=== PATIENT | female | born 1950 | race Caucasian/White ===

== ENCOUNTER 2017-05-06 23:14 | Emergency (ER) | payer MEDICARE, OTHER ==
[~2017-05-06] VITALS: Ht 154.9 cm; Wt 48.5 kg
[~2017-05-06 23:14] MED LIST: ADVAIR HFA 45MC1 AER INH; ADVAIR HFA115 MCG/21; BIOTIN10000 MC1 PO; CLONAZEPAM 0.50.5 M1 PO; CO Q-10100 MG PO; COMPAZINE10 MG PO; CYMBALTA60 MG PO; DEXAMETHASONE 44 M1 PO; DURAGESIC1 EAC1 TOP; ENOXAPARIN60 MG/0.1 SUBQ; ENOXAPARIN80 MG/0.1; FLOMAX PO; FLUCONAZOLE 10100 MG PO; GABAPENTIN 100100 MG PO; HYDROCODON-ACE1 EAC5 PO; HYDROCODONE-AP1 EAC6 PO; LASIX 20 MG TAB20 MG PO; LASIX 40 MG TAB40 M2 PO; LEVAQUIN 500 M500 M2; LEVAQUIN 500 M500 M2 PO; LEVOCETIRIZINE D5 MG PO; LISINOPRIL10 MG PO; LOPRESSOR25 PO; MIRALAX17 G1 PO; MOBIC15 MG; MOBIC7.5 MG PO; MYRBETRIQ25 MG PO; NEURONTIN 300M300 M2; NORCO 10-325 T1 EACH PO; PERCOCET 5-3251 EACH PO; PHENERGAN 25 MG25 M1 PO; POTASSIUM20 PO; PREDNISONE 20 M20 MG PO; PROBIOTIC1 EAC1 PO; PROCTOSOL-HC28.35 GM RC; ROBAXIN 750 MG750 M1 PO; SERTRALINE HCL100 MG PO; SERTRALINE HCL50 MG PO; TIROSINT75 MCG PO; TRIAMCINOLONE ACETON NASAL; VICODIN; VICODIN 5-3001 EACH PO; VITAMIN B-1100 M1; VITAMIN D3400 UNIT PO; VITAMIN IM; ZOFRAN ODT8 MG PO; ZOLOFT50 MG PO
[2017-05-06 23:19] VITALS: BP 151/110
[2017-05-06] MEDS ORDERED: ENOXAPARIN60 MG/0.1 (23:22)
[2018-01-11] MEDS ORDERED: FENTANYL PATCH75 MCG TOP (13:22)
[2018-01-11] MEDS ORDERED: BIOTIN1000 MCG PO (13:23)
[2018-01-11] MEDS ORDERED: 24HR ALLERGY REL5 MG PO (13:23)
[2018-01-11] MEDS ORDERED: VITAMIN E400 UNIT PO (13:24)
[2018-01-11] MEDS ORDERED: MULTIPLE VITAM1 EAC2 PO (13:24)
[2018-01-11] MEDS ORDERED: OMEGA-31000 M1 PO (13:25)
[2018-01-11] MEDS ORDERED: PROAIR HFA8.5 GM INH (13:28)
[2018-01-11] MEDS ORDERED: [UNRECOGNIZED DRUG - OTHER] PO (13:28)
[2018-01-11] MEDS ORDERED: UNICOMPLEX M TA1 TA1 PO (13:29)
[2018-01-11] MEDS ORDERED: PROBIOTIC1 EAC1 PO (13:29)
[2018-01-11] MEDS ORDERED: CO Q-10100 MG PO (13:29)
[2018-01-11] MEDS ORDERED: MIRALAX17 GM PO (13:30)
[2018-01-11] MEDS ORDERED: OXYGEN MISCELL (13:31)
== END 2017-05-07 | disposition home or self-care (01) ==
LOC: M.ERS 23:14
DX: L59.8 Other specified disorders of the skin and subcutaneous tissue related to radiation (principal); E03.9 Hypothyroidism, unspecified; F41.9 Anxiety disorder, unspecified; F32.9 Major depressive disorder, single episode, unspecified; I10 Essential (primary) hypertension; Z88.1 Allergy status to other antibiotic agents; Z90.710 Acquired absence of both cervix and uterus; Z98.890 Other specified postprocedural states; Z88.8 Allergy status to other drugs, medicaments and biological substances

== ENCOUNTER → 2017-11-14 | Outpatient (CLI) | payer MEDICARE, OTHER ==
[~2017-11-14] MED LIST changes: +24HR ALLERGY REL5 MG PO; +BIOTIN1000 MCG PO; +ENOXAPARIN60 MG/0.1; +FENTANYL PATCH75 MCG TOP; +KEFLEX500 M1 PO; +MIRALAX17 GM PO; +MULTIPLE VITAM1 EAC2 PO; +OMEGA-31000 M1 PO; +OXYGEN MISCELL; +PROAIR HFA8.5 GM INH; +UNICOMPLEX M TA1 TA1 PO; +VITAMIN E400 UNIT PO; +[UNRECOGNIZED DRUG - OTHER] PO; +[UNRECOGNIZED DRUG - OTHER] PO
== END ==
LOC: M.RAD 10-24 08:49
DX: Z12.31 Encounter for screening mammogram for malignant neoplasm of breast (principal); M85.89 Other specified disorders of bone density and structure, multiple sites; I10 Essential (primary) hypertension; M48.061 Spinal stenosis, lumbar region without neurogenic claudication; K52.0 Gastroenteritis and colitis due to radiation; D51.1 Vitamin B12 deficiency anemia due to selective vitamin B12 malabsorption with proteinuria; D64.9 Anemia, unspecified; F33.1 Major depressive disorder, recurrent, moderate; Z78.0 Asymptomatic menopausal state

== ENCOUNTER 2018-01-15 14:52 | Emergency (ER) | payer MEDICARE, OTHER ==
[~2018-01-15] VITALS: Ht 154.9 cm; Wt 48.5 kg
[~2018-01-15 14:52] MED LIST changes: -KEFLEX500 M1 PO; -[UNRECOGNIZED DRUG - OTHER] PO
[2018-01-15] MEDS ORDERED: [UNRECOGNIZED DRUG - OTHER] PO (15:22)
[2018-01-15] MEDS ORDERED: KEFLEX500 M1 PO (16:58)
[2018-01-15 17:18] VITALS: BP 150/92
== END 2018-01-15 17:19 | disposition home or self-care (01) ==
LOC: M.ERS 14:52
DX: M79.671 Pain in right foot (principal); M79.674 Pain in right toe(s); E03.9 Hypothyroidism, unspecified; F41.9 Anxiety disorder, unspecified; F32.9 Major depressive disorder, single episode, unspecified; I10 Essential (primary) hypertension; Z88.1 Allergy status to other antibiotic agents; Z88.8 Allergy status to other drugs, medicaments and biological substances; Z90.710 Acquired absence of both cervix and uterus; Z90.49 Acquired absence of other specified parts of digestive tract

== ENCOUNTER → 2018-01-15 | Day surgery (SDC) | payer MEDICARE, OTHER ==
[2018-01-15 11:51] LABS: HEMATOCRIT 44.8 % (37.0-47.0); MCH 30.4 pg (26.0-34.0); MCHC 33.5 g/dL (28.0-37.0); MCV 90.8 fL (80.0-100.0); MPV 9.2 fl. (7.2-11.1); RBC 4.93 mil/uL (4.20-5.00); RDW-CV 13.3 % (10.5-14.5); WBC 8.4 thou/uL (4.0-11.0)
[2018-01-15 12:02] LABS: CALCIUM 8.9 mg/dL (8.5-10.1); CREATININE 0.8 mg/dL (0.6-1.3); POTASSIUM 3.6 mmol/L (3.5-5.1)
[2018-01-15 12:06] LABS: ALBUMIN 3.7 g/dL (3.4-5.0); TOTAL BILIRUBIN 0.5 mg/dL (<0.1-1.0); TOTAL PROTEIN 6.9 g/dL (6.4-8.2)
--- NOTE | 2018-01-15 13:12 | EKG ---
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[employer]: [facility] : 1950 Requested By: Robyn Thomas Order Number: [id number] Reading MD: Juan Greenberg Measurements Intervals [place] Rate: 77 P: 66 MO: 134 QRS: 9 QRSD: 93 T: 56 QT: 387 QTc: 438 Interpretive Statements Sinus rhythm Compared to ECG 02/07/2017 12:12:09 T-wave abnormality no longer present Electronically Signed On 01-15-2018 13:12:34 CDT by Juan Greenberg [email or web address] <ELECTRONICALLY SIGNED> By: Juan Greenberg MD, [facility] 01/15/18 1312 D: [id number] Juan Greenberg MD, FACC /EPI
== END | disposition home or self-care (01) ==
LOC: M.SUR 06:51
PROVIDERS: Internal Medicine Gastroenterology
DX: Z12.11 Encounter for screening for malignant neoplasm of colon (principal); K22.2 Esophageal obstruction; K44.9 Diaphragmatic hernia without obstruction or gangrene; K64.8 Other hemorrhoids; J45.909 Unspecified asthma, uncomplicated; E03.9 Hypothyroidism, unspecified; F32.9 Major depressive disorder, single episode, unspecified; Z98.890 Other specified postprocedural states; Z79.899 Other long term (current) drug therapy; Z85.238 Personal history of other malignant neoplasm of thymus
CPT/HCPCS: 43248; G0121

== ENCOUNTER → 2018-08-22 | Outpatient (CLI) | payer MEDICARE, OTHER ==
[~2018-08-22] MED LIST changes: +KEFLEX500 M1 PO; +[UNRECOGNIZED DRUG - OTHER] PO
== END ==
LOC: M.CT 13:00
DX: I65.23 Occlusion and stenosis of bilateral carotid arteries (principal); Z88.8 Allergy status to other drugs, medicaments and biological substances

== ENCOUNTER → 2019-01-11 | Outpatient (CLI) | payer MEDICARE, OTHER ==
[2019-01-11 13:41] LABS: CALCIUM 8.9 mg/dL (8.5-10.1); CREATININE 0.8 mg/dL (0.6-1.3); POTASSIUM 3.6 mmol/L (3.5-5.1)
== END ==
LOC: M.MRI 11:30 → M.LAB 12:30 → M.RAD 12:30 → M.LAB 13:13
PROVIDERS: Registered Nurse Diabetes Educator
DX: M47.816 Spondylosis without myelopathy or radiculopathy, lumbar region (principal); M47.817 Spondylosis without myelopathy or radiculopathy, lumbosacral region; I10 Essential (primary) hypertension; J32.8 Other chronic sinusitis; M48.061 Spinal stenosis, lumbar region without neurogenic claudication; M51.26 Other intervertebral disc displacement, lumbar region; M51.27 Other intervertebral disc displacement, lumbosacral region; M85.68 Other cyst of bone, other site; Z85.118 Personal history of other malignant neoplasm of bronchus and lung; Z88.8 Allergy status to other drugs, medicaments and biological substances; W19.XXXA Unspecified fall, initial encounter

== ENCOUNTER → 2019-01-30 | Outpatient (CLI) | payer MEDICARE, OTHER ==
[~2019-01-30] MED LIST changes: +COENZYME Q-10200 MG PO; +CYANOCOBALAMIN PO; +FLONASE 0.05%50 MCG NARES; +MELOXICAM15 MG PO; +TUMERIC PO
== END ==
LOC: M.RAD 16:07
DX: R05 Cough (principal); Z98.890 Other specified postprocedural states; Z88.8 Allergy status to other drugs, medicaments and biological substances

== ENCOUNTER → 2019-02-14 | Outpatient (CLI) | payer MEDICARE, OTHER ==
--- NOTE | 2019-02-20 09:09 | PAINCON ---
[address] [address] PAIN MANAGEMENT CONSULTATION Name: ATILIOAMANUELREN HERNANDEZ Room: [facility].#: [id number] Admission: 02/14/19 Attend Phys: Anali Lord MD Discharge: Date of : 46 Report #: [id number] THIS REPORT FOR: //name// CC: Anali Simons NP DATE OF SERVICE: 02/14/2019 CHIEF COMPLAINT: Low back and hip pain. HISTORY: The patient is a 68-year-old female who has been referred to the pain clinic for evaluation of back and hip discomfort. The patient has had pain and discomfort for quite a number of years. It dates back to 1994. She has pain in her low back as well as the right hip area. She recalls having pain after lifting some heavy item back in 1994. After lifting the items, she noticed increased pain in her back and has had some pain in her hip area on both sides. She has had sciatic nerve type pain in the past. She feels this might be a little bit different than that. She had trigger point injections in the past. She has had some pain with sitting, bending and standing. Described as continuous, constant, burning, aching and sometimes sharp. She rates it as a 7/10 on most days. ALLERGIES: ERYTHROMYCIN, STATINS. CURRENT MEDICATIONS: Cymbalta 60 mg; Zoloft 50 mg, total of 100 at bedtime; triamcinolone nasal spray; Proctosol 30 g b.i.d. hemorrhoids; hydrocodone 10/325 p.r.n. back pain; Zofran 8 mg p.r.n. nausea; vitamin B12 injection monthly; levothyroxine 75 mcg; Atomidine; vitamin D3 5000 units daily; fentanyl patches 75 mcg in the past; levocetirizine allergy relief 5 mg daily; Biotin 1000 mcg daily; vitamin E 400 units; omega 3 fatty acids 2000 mg; albuterol ProAir; probiotic lactobacillus; CoQ10 100 mg; Unicomplex-M tablet daily; and MiraLax 17 g. PAST MEDICAL HISTORY: Hypothyroidism, back pain, history of spinal stenosis, carpal tunnel both hands, rheumatic fever with heart murmur, anxiety, depression, prolapsed bladder, rotator cuff pain, hypertension, pulmonary embolus, thymoma cancer status post resection and chemotherapy. PAST SURGICAL HISTORY: 1. Carpal tunnel surgery, both hands. 2. Knee surgery, right torn meniscus. 3. Hysterectomy 4. Appendectomy. 5. Foot surgery, right bunionectomy. 6. Thymic [place] [address] PAIN MANAGEMENT CONSULTATION Name: AMANUEL TRIMBLE DAVID [id number] Admission: 02/14/19 Attend Phys: Anali Lord MD Discharge: Date of : 46 Report #: [id number] SOCIAL HISTORY: Retired, has not worked since 2000. REVIEW OF SYSTEMS: Generally good health, eye disease, wears glasses, glaucoma/cataracts, hearing loss, ear drainage, chronic sinus problems, sore throat, shortness of breath, asthma with wheezing, kidney stones, thyroid disease, joint disease, joint stiffness and swelling, muscle weakness and joints, muscle pain and cramps, back pain, difficulty walking, varicose veins, numbness and tingling sensation, memory loss/confusion, bleeding tendencies and anemia. LABORATORY DATA: MRI of the lumbar spine dated 01/01/2019. 1. L3-L4, there is a generalized disk bulge with moderate hypertrophic posterior facet degenerative changes. No significant central spinal stenosis. There is a small lateral L3 paraneural cyst. No significant neural foraminal narrowing. 2. L4-L5, there is a generalized disk bulge, which is slightly more eccentric toward the left. Moderate hypertrophic posterior facet degenerative changes present. No significant central spinal stenosis. There is a 5-mm cystic lesion associated with the exiting L4 nerve root consistent with a perineural cyst. No significant neural foraminal narrowing. 3. At L5-S1, there is a generalized disk bulge with moderate hypertrophic posterior facet degenerative change. No central spinal stenosis. There is mild bilateral neural foraminal narrowing. There is a 5-mm cyst associated with it and exiting the L5 nerve root sleeve consistent with a perineural cyst. There is bilateral subcentimeter S1 perineural cyst. There is a small bilateral simple appearing renal cyst. PAIN CLINIC ASSESSMENT/PQRS: 1. The patient has history of arthritic changes involving knees, bunionectomy rotator cuff. The patient is not being treated for rheumatoid arthritis. 2. Height 5 feet 1 inch, weight 114 pounds, BMI is 21.7. 3. Vital signs: Blood pressure 151/87, heart rate 75, respiratory rate 16, room air saturation 93%, temperature is 98.1. 4. Pain intensity 7/10. 5. Fall history: The patient has not fallen in the last 3 months. 6. Blood thinner. The patient is not on a blood thinning medication. 7. Hypertension. The patient is being treated for hypertension. 8. Opioids greater than 6 weeks. The patient is taking hydrocodone 10 mg p.r.n. 9. Risk assessment tool, low for opioid use. 10. Functional assessment tool. 11. Recreational drug use: The patient denies. 12. Tobacco: The patient denies. 13. Alcohol: [place] [address] PAIN MANAGEMENT CONSULTATION Name: AMANUEL TRIMBLE Room: [facility]#: [id number] Admission: 02/14/19 Attend Phys: Anlai Lord MD Discharge: Date of : 46 Report #: [id number] PHYSICAL EXAMINATION: GENERAL: The patient is a well-developed white female. She is accompanied by her daughter. She is alert and oriented x 3. Her affect is appropriate. Speech is fluent. HEENT: Normocephalic, atraumatic. Extraocular eye muscles intact. Sclerae nonicteric. Mucous membranes are moist. The patient is wearing glasses. The patient complains of some pain and discomfort involving the left nasal area and maxillary area with palpation. HEART: Regular rate. S1, S2. No murmur could be heard at this point. LUNGS: Generally clear to auscultation. The patient without bruits in the neck area. ABDOMEN: Nontender. The patient has a well-healed scar in the anterior sternal area. There are some varicosities in the area of the incision. Upper extremity muscle strength judged to be 4+/5 for the major muscle groups in the upper extremity. The patient has a trigger finger on the left ring finger. Deep tendon reflexes are trace for the biceps bilaterally. Difficult to appreciate at the knees and ankles. The patient has somewhat constant motion of moving perpetual motion during the interview. The patient is able to stand briefly on her toes and heels without worsening of her back pain. Left and right lateral bending caused some increased discomfort on the right side, left and right lateral rotation cause some increased discomfort on the right side. Lumbar extension caused some increased low back discomfort. Anterior spring test caused some increased pain in the SI joint. Santi's sign caused some increased pain in the SI joints, right more so than left. The patient denies significant lumbar radicular pain at this point. She does have some pain that radiates down into the buttocks area, but not down into the sciatic area today. She does have some occasional twinges of pain and discomfort in this area. IMPRESSION: 1. Left as well as right sacroiliac joint dysfunction. 2. Left-sided face pain under the left orbit and increased discomfort with palpation near the nasal area. RECOMMENDATIONS: We discussed treatment options with the patient. At this juncture, we will proceed with sacroiliac joint injections left and right side. The patient feels that the pain in the sacroiliac area principally on the right as well as on the left is problematic. The risks and benefits of the procedure were discussed. They include but are not limited to infection, worsening pain, no improvement in pain and the patient elects to proceed. PROCEDURE NOTE: The patient was taken to the procedure area. We have discussed the risks and benefits with the patient and her daughter. She elects to proceed. The patient was assisted in getting on examination table. A pillow was placed under the abdomen to bolster and improve positioning. Fluoroscopy using anterior, posterior viewing was undertaken. The back area in the area of the left and right SI joint area was sterilely prepped with a chlorhexidine [address] [address] PAIN MANAGEMENT CONSULTATION Name: AMANUEL TRIMBLE Room: [facility]#: [id number] Admission: 02/14/19 Attend Phys: Anali Lord MD Discharge: Date of : 46 Report #: [id number] solution and allowed to dry. A 25-gauge needle was then used to provide a skin wheal. A 20-gauge spinal needle was then advanced into the SI joint area. Aspiration was negative. A total of 40 mg triamcinolone was injected. The contralateral left side was treated in a like fashion. A 25-gauge needle was then used to anesthetize the skin. A 20-gauge spinal needle was advanced into the area of the SI joint. A total of 40 mg triamcinolone was injected. The patient tolerated the procedure well. There were no complications. She will follow up in the future. We would like to thank you for letting us participate in her care. We hope she continues to improve. <ELECTRONICALLY SIGNED> By: Anali Lord MD 02/20/19 0909 1521 [id number]. Casa Lord MD /nt
== END | disposition home or self-care (01) ==
LOC: M.PC 04:38
DX: M53.3 Sacrococcygeal disorders, not elsewhere classified (principal); M54.5 Low back pain; R51 Headache; I10 Essential (primary) hypertension; E03.9 Hypothyroidism, unspecified; F32.9 Major depressive disorder, single episode, unspecified; Z98.890 Other specified postprocedural states; Z86.711 Personal history of pulmonary embolism; Z79.01 Long term (current) use of anticoagulants; Z85.238 Personal history of other malignant neoplasm of thymus; Z88.8 Allergy status to other drugs, medicaments and biological substances; Z90.710 Acquired absence of both cervix and uterus; Z90.49 Acquired absence of other specified parts of digestive tract; Z79.899 Other long term (current) drug therapy

== ENCOUNTER 2019-02-26 16:07 | Emergency (ER) | payer MEDICARE, OTHER ==
[~2019-02-26] VITALS: Ht 154.9 cm; Wt 49.9 kg
[2019-02-26 17:52] VITALS: BP 162/87
== END 2019-02-26 17:52 | disposition home or self-care (01) ==
LOC: M.ERS 16:07
DX: R51 Headache (principal); I10 Essential (primary) hypertension; E03.9 Hypothyroidism, unspecified; M48.00 Spinal stenosis, site unspecified; F41.9 Anxiety disorder, unspecified; F32.9 Major depressive disorder, single episode, unspecified; Z90.710 Acquired absence of both cervix and uterus; Z90.49 Acquired absence of other specified parts of digestive tract; Z86.711 Personal history of pulmonary embolism; Z88.1 Allergy status to other antibiotic agents; Z88.8 Allergy status to other drugs, medicaments and biological substances

== ENCOUNTER → 2019-05-09 | Outpatient (CLI) | payer MEDICARE, OTHER | LOC: M.LAB 15:30 → M.MRI 16:30 | PROVIDERS: Registered Nurse Diabetes Educator | DX: I67.82 Cerebral ischemia (principal); H57.12 Ocular pain, left eye; Z88.8 Allergy status to other drugs, medicaments and biological substances; Z88.1 Allergy status to other antibiotic agents ==

== ENCOUNTER → 2019-09-12 | Outpatient (CLI) | payer MEDICARE, OTHER ==
--- NOTE | 2019-09-12 12:16 | CARDNUC ---
[place] [address] CARDIAC NUCLEAR IMAGING REPORT Name: AMANUEL TRIMBLE Room: [facility]#: [id number] Admission: 09/12/19 Attend Phys: Juan Gaytan, Discharge: Date of : 46 Date of Service: 09/12/19 1214 Report #: [id number] THIS REPORT FOR: cc: Lee Ann Simons Tammy RNP Liston, Michael J. MD [facility] ~ APPROVED REPORT Imaging Protocol: Stress Tc-99m/Rest Tc-99m 1 day Study performed: 09/12/2019 09:40:31 Indication: Dyspnea Patient Location: Out-Patient Stress Tech: Rolanda Guzman Stress Nurse: Katty Lux RN NM Tech:VIKRAM Jay Ht: 5 ft 1 in Wt: 109 lbs BSA: 1.46 m2 BMI: 20.59 Medical History Medical History: HTN, Hyperlipidemia,thyoma removed. frozen diaphram on right side, partial lung removal right side. Medications: no cardiac meds Allergies: ceftin, crestor, erythromycin, lipitor, lipofen, lopid, welbutrin, zetia, zocor Cardiac Risk Factors: Age, Hyperlipidemia, HTN, Tobacco History (Former) Exercise History: Indeterminate Resting Data Rest SPECT myocardial perfusion imaging was performed in supine position 30 minutes following the intravenous injection of 9.5 mCi of Tc-99m Sestamibi. Time of rest injection: 8:05 The images were gated to evaluate regional wall motion and calculate left ventricular ejection fraction. Administration Route: IV Administration Site: Right Arm Pharmacologic Stress Pharmacologic stress test was performed by injecting Regadenoson 0.4 mg IV push over 10-15 seconds immediately followed by the intravenous injection of 31.3 mCi of Tc-99m [place] [address] CARDIAC NUCLEAR IMAGING REPORT Name: AMANUEL TRIMBLE Room: [facility]#: [id number] Admission: 09/12/19 Attend Phys: Juan Gaytan, Discharge: Date of : 46 Date of Service: 09/12/19 1214 Report #: [id number] Time of stress injection: 09:40 Heart Rate at time of stress injection: 87 bpm. Gated Stress SPECT was performed 40 minutes after stress injection. The images were gated to evaluate regional wall motion and calculate left ventricular ejection fraction. Prone imaging was performed. Stress Test Details Stress Test: Pharmacologic stress testing performed using 0.4 mg of regadenoson per 5 mL given IV over 10 seconds. Reason for pharmacologic stress test: physical limitation. HR Max Heart Rate (APMHR): 149 bpm Resting HR: 72 bpm Target HR (85% APMHR): 126 bpm Max HR Achieved: 87 bpm % of APMHR: 58 Recovery HR: 84 bpm BP Resting BP: 140/94 mmHg Max BP: 149/80 mmHg Recovery BP: 149/80 mmHg ECG Resting ECG: Sinus Rhythm Stress ECG: Sinus Rhythm ST Change: None Arrhythmia: None Recovery ECG: Sinus Rhythm Recovery ST Change: None Recovery Arrhythmia: None Clinical Reason for Termination: Completed protocol The patient tolerated Lexiscan infusion without significant cardiac symptoms. Nurse Comments pt has unsteady gait and cannot walk on treadmill Stress ECG Conclusion Baseline twelve-lead EKG shows sinus rhythm with no significant ST segment or T wave abnormalities. EKG is obtained during and post Lexiscan infusion shows sinus rhythm with no significant ST segment or T wave changes when compared to baseline. There were no stress-[place] [address] CARDIAC NUCLEAR IMAGING REPORT Name: AMANUEL TRIMBLE Room: [facility]#: [id number] Admission: 09/12/19 Attend Phys: Juan Gaytan, Discharge: Date of : 46 Date of Service: 09/12/19 1214 Report #: [id number] Study Quality Study: Good Artifact: No artifact Study Data At rest, the left ventricular ejection fraction was 87%.. Post stress, the left ventricular ejection was 85%.. TID = 0.89. Perfusion Perfusion images obtained at rest and post Lexiscan stress showed uniform uptake of the radioisotope throughout the myocardium without defect. Wall Motion Normal left ventricular wall motion. Nuclear Conclusion ECG Findings: negative for ischemia Clinical Findings: negative for ischemia Nuclear Findings: negative for ischemia Exercise Capacity: not assessed Left Ventricular Function: normal Risk Study: low Myocardial perfusion images show no defect to suggest infarct or ischemia. Left ventricular systolic function appears normal on gated studies. This is a low risk study. <Conclusion> Baseline twelve-lead EKG shows sinus rhythm with no significant ST segment or T wave abnormalities. EKG is obtained during and post Lexiscan infusion shows sinus rhythm with no significant ST segment or T wave changes when compared to baseline. There were no stress-induced arrhythmias. <ELECTRONICALLY SIGNED> By: Oj Sierra MD, FACC 09/12/19 1214 13 13 Oj Sierra MD, FACC /INF
== END ==
LOC: M.CRD 08-30 15:36 → M.NUC 09-09 08:00 → M.CRD 09-09 08:00 → M.NUC 07:50
DX: R06.09 Other forms of dyspnea (principal); R01.1 Cardiac murmur, unspecified; I10 Essential (primary) hypertension; E78.5 Hyperlipidemia, unspecified; D15.0 Benign neoplasm of thymus; E78.00 Pure hypercholesterolemia, unspecified; Z88.1 Allergy status to other antibiotic agents; Z88.8 Allergy status to other drugs, medicaments and biological substances

== ENCOUNTER → 2019-09-24 | Outpatient (CLI) | payer MEDICARE, OTHER ==
--- NOTE | 2019-09-24 16:09 | 2DMMODE ---
[place] [address] 2 D/M-MODE ECHOCARDIOGRAM Name: AMANUEL TRIMBLE Bebo Room: [facility]#: [id number] Admission: 09/24/19 Attend Phys: Juan Gaytan, Discharge: Date of : 46 Date of Service: 09/24/19 1607 Report #: [id number] THIS REPORT FOR: cc: Lee Ann Simons Tammy RNP Liston, Michael J. MD [facility] ~ APPROVED REPORT Study performed: 09/24/2019 10:01:46 EXAM: Comprehensive 2D, Doppler, and color-flow Echocardiogram Patient Location: Out-Patient BSA: 1.46 HR: 76 bpm BP: 110/60 mmHg Other Information Study Quality: Fair Indications Dyspnea Chest Pain Hypertension/HDD 2D Dimensions IVSd: 10.61 (7-11mm) LVOT Diam: 18.73 (18-24mm) LVDd: 27.56 mm PWd: 10.08 (7-11mm) Ascending Ao: 24.21 (22-36mm) LVDs: 18.77 (25-40mm) Aortic Root: 19.08 mm Volumes Left Atrial Volume (Systole) LA ESV Index: 16.40 mL/m2 Aortic Valve AoV Peak Alex.: 1.27 m/s AO Peak Gr.: 6.46 mmHg LVOT Max P.11 mmHg AO Mean Gr.: 3.72 mmHg LVOT Mean P.12 mmHg LVOT Max V: 1.33 m/s AO V2 VTI: 23.56 cm LVOT Mean V: 0.80 m/s JORGITO (VTI): 2.93 cm2 LVOT V1 VTI: 25.00 [place] [address] 2 D/M-MODE ECHOCARDIOGRAM Name: AMANUEL TRIMBLE Room: [facility]#: [id number] Admission: 09/24/19 Attend Phys: Juan Gaytan, Discharge: Date of : 46 Date of Service: 09/24/19 1607 Report #: [id number] Mitral Valve E/A Ratio: 0.79 MV Decel. Time: 138.82 ms MV E Max Alex.: 0.54 m/s MV PHT: 40.26 ms MVA (PHT): 5.46 cm2 TDI E/Lateral E': 4.50 E/Medial E': 6.75 Medial E' Alex.: 0.08 m/s Lateral E' Alex.: 0.12 m/s Pulmonary Valve PV Peak Alex.: 1.06 m/s PV Peak Gr.: 4.47 mmHg Tricuspid Valve RAP Estimate: 5.00 mmHg TR Peak Gr.: 22.95 mmHg RVSP: 27.95 mmHg PA Pressure: 27.95 mmHg Left Ventricle The left ventricle is normal size. Cannot rule out focal wall motion abnormality due to poor endocardial definition. There is normal left ventricular wall thickness. Left ventricular systolic function is grossly normal. LVEF is 55-60%. Grade I - abnormal relaxation pattern. Right Ventricle The right ventricle is normal size. The right ventricular systolic function is normal. Atria The left atrium size is normal. The right atrium size is normal. Aortic Valve The aortic valve is normal in structure. No aortic regurgitation is present. There is no aortic valvular stenosis. Mitral Valve The mitral valve is normal in structure. There is no mitral valve regurgitation noted. No evidence of mitral valve stenosis. Tricuspid Valve The tricuspid valve is normal in structure. Mild tricuspid regurgitation[place] [address] 2 D/M-MODE ECHOCARDIOGRAM Name: AMANUEL TRIMBLE Room: [facility]#: [id number] Admission: 09/24/19 Attend Phys: Juan Gaytan, Discharge: Date of : 46 Date of Service: 09/24/19 1607 Report #: [id number] Pulmonic Valve The pulmonary valve is normal in structure. There is no pulmonic valvular regurgitation. Great Vessels The aortic root is normal in size. IVC is normal in size and collapses >50% with inspiration. Pericardium There is no pericardial effusion. <Conclusion> The left ventricle is normal size. There is normal left ventricular wall thickness. Left ventricular systolic function is grossly normal. LVEF is 55-60%. Grade I - abnormal relaxation pattern. Mild tricuspid regurgitation. No pulmonary hypertension. IVC is normal in size and collapses >50% with inspiration. <ELECTRONICALLY SIGNED> By: Oj Sierra MD, FACC 09/24/19 1607 160 160 Oj Sierra MD, FACC /INF
== END ==
LOC: M.CRD 10:00
DX: Z12.31 Encounter for screening mammogram for malignant neoplasm of breast (principal); I07.1 Rheumatic tricuspid insufficiency; I10 Essential (primary) hypertension; D15.0 Benign neoplasm of thymus; R01.1 Cardiac murmur, unspecified; E78.00 Pure hypercholesterolemia, unspecified; R06.09 Other forms of dyspnea

== ENCOUNTER → 2019-09-26 | Outpatient (CLI) | payer MEDICARE, OTHER | LOC: M.ULTRA 13:00 → M.RAD 13:00 → M.ULTRA 13:30 | DX: N63.10 Unspecified lump in the right breast, unspecified quadrant (principal) ==

== ENCOUNTER → 2020-07-10 | Outpatient (CLI) | payer MEDICARE, OTHER | LOC: M.RAD 12:37 | PROVIDERS: ATTEND Registered Nurse Diabetes Educator | DX: M25.421 Effusion, right elbow (principal); M85.831 Other specified disorders of bone density and structure, right forearm; M25.561 Pain in right knee ==

== ENCOUNTER → 2020-07-22 | Outpatient (CLI) | payer MEDICARE, OTHER | LOC: M.MRI 13:16 | PROVIDERS: ATTEND Registered Nurse Diabetes Educator | DX: S42.401A Unspecified fracture of lower end of right humerus, initial encounter for closed fracture (principal); S56.511A Strain of other extensor muscle, fascia and tendon at forearm level, right arm, initial encounter; S50.01XA Contusion of right elbow, initial encounter; X58.XXXA Exposure to other specified factors, initial encounter; Y93.89 Activity, other specified; Y92.89 Other specified places as the place of occurrence of the external cause; Y99.8 Other external cause status ==

== ENCOUNTER → 2020-12-17 | Outpatient (CLI) | payer MEDICARE, OTHER | LOC: M.RAD 15:30 | PROVIDERS: ATTEND Registered Nurse Diabetes Educator | DX: M85.80 Other specified disorders of bone density and structure, unspecified site (principal); Z78.0 Asymptomatic menopausal state ==

== ENCOUNTER 2020-12-22 15:11 | Emergency (ER) | payer MEDICARE, OTHER ==
[~2020-12-22] VITALS: Ht 152.4 cm; Wt 48.5 kg
[2020-12-22 15:55] LABS: ABSOLUTE BASOPHILS 0.1 thou/uL (0.0-0.2); ABSOLUTE EOSINOPHILS 0.2 thou/uL (0.0-0.7); ABSOLUTE LYMPHOCYTES 1.8 thou/uL (0.8-5.3); ABSOLUTE MONOCYTES 0.7 thou/uL (0.0-1.2); ABSOLUTE NEUTROPHILS 7.5 thou/uL (1.6-8.1); BASOPHILS 1.2 %; EOSINOPHILS 1.5 %; HEMATOCRIT 43.7 % (37.0-47.0); HEMOGLOBIN 14.6 gm/dL (12.0-15.0); LYMPHOCYTES 17.4 %; MCH 30.3 pg (26.0-34.0); MCHC 33.4 g/dL (28.0-37.0); MCV 90.9 fL (80.0-100.0); MONOCYTES 6.9 %; MPV 9.7 fl. (7.2-11.1); NUCLEATED RBCS 0 /100WBC; PLATELET COUNT* 200 thou/uL (150-400); RDW-CV 12.7 % (10.5-14.5); WBC 10.3 thou/uL (4.0-11.0)
[2020-12-22 16:05] LABS: CALCIUM 9.1 mg/dL (8.5-10.1); CREATININE 0.9 mg/dL (0.6-1.3); POTASSIUM 3.5 mmol/L (3.5-5.1)
[2020-12-22 16:09] LABS: ALBUMIN 3.7 g/dL (3.4-5.0); TOTAL BILIRUBIN 0.3 mg/dL (<0.1-1.0); TOTAL PROTEIN 6.4 g/dL (6.4-8.2)
[2020-12-22 17:05] LABS: ESR (SEDRATE) 1 mm/hr (0-30)
[2020-12-22 18:17] VITALS: BP 170/106
== END 2020-12-22 18:17 | disposition home or self-care (01) ==
LOC: M.ERS 15:11
PROVIDERS: Nurse Practitioner Family
DX: H57.12 Ocular pain, left eye (principal); R51.9 Headache, unspecified; E03.9 Hypothyroidism, unspecified; F41.9 Anxiety disorder, unspecified; F32.9 Major depressive disorder, single episode, unspecified; I10 Essential (primary) hypertension; Z90.710 Acquired absence of both cervix and uterus; Z90.89 Acquired absence of other organs; Z98.890 Other specified postprocedural states; Z85.238 Personal history of other malignant neoplasm of thymus; Z79.891 Long term (current) use of opiate analgesic; Z79.899 Other long term (current) drug therapy; Z79.1 Long term (current) use of non-steroidal anti-inflammatories (NSAID); Z79.51 Long term (current) use of inhaled steroids; Z88.6 Allergy status to analgesic agent; Z91.041 Radiographic dye allergy status

== ENCOUNTER → 2021-02-16 | Outpatient (CLI) | payer MEDICARE, OTHER | LOC: M.RAD 11:55 | PROVIDERS: ATTEND Registered Nurse Diabetes Educator | DX: M17.12 Unilateral primary osteoarthritis, left knee (principal) ==

== ENCOUNTER → 2021-04-06 | Outpatient (CLI) | payer MEDICARE, OTHER | LOC: M.MRI 11:30 | PROVIDERS: ATTEND Orthopaedic Surgery Adult Reconstructive Orthopaedic Surgery | DX: S83.242A Other tear of medial meniscus, current injury, left knee, initial encounter (principal); M25.862 Other specified joint disorders, left knee; M17.12 Unilateral primary osteoarthritis, left knee; M25.462 Effusion, left knee; X58.XXXA Exposure to other specified factors, initial encounter; Y93.89 Activity, other specified; Y92.89 Other specified places as the place of occurrence of the external cause; Y99.8 Other external cause status ==